=== PATIENT | female | born 1945 ===

== ENCOUNTER 2018-10-26 09:34 | Day surgery (SDC) | payer OTHER ==
[~2018-10-26 09:34] MED LIST: CLONAZEPAM0.5 MG PO; COZAAR100 MG PO; NIFE60TA3 PO; OPTIMAL D350000 UNIT PO; SIMVASTATIN20 MG PO; WELLBUTRIN XL150 M1 PO; ZANTAC150 MG PO
== END 2018-10-26 15:55 | disposition home or self-care (01) ==
LOC: CIR.AMB 09:34 → EDBD 14:15 → CIR.AMB 14:15
DX: M75.122 Complete rotator cuff tear or rupture of left shoulder, not specified as traumatic (principal)